=== PATIENT | female | born 1990 | race African-American/Black ===

== ENCOUNTER 2016-06-01 09:55 | Emergency (ER) | payer SELFPAY ==
[~2016-06-01] VITALS: Ht 165.1 cm; Wt 101.6 kg
[~2016-06-01 09:55] MED LIST: SULF15DR5 OD
[2016-06-01 10:25] VITALS: BP 148/90
[2016-06-01 11:31] LABS: BACTERIA,URINE FEW /HPF (0-FEW); BILIRUBIN,URINE NEGATIVE (NEG); GLUCOSE,URINE NEGATIVE (NEG); NITRITE,URINE NEGATIVE (NEG); PH,URINE 6.5; PROTEIN,URINE NEGATIVE (NEG-TRACE); RBC,URINE 0 /HPF (0-2); SQUAMOUS EPITHELIAL CELL,UR MOD /LPF; UROBILINOGEN,URINE 0.2 mg/dL (0.2 mg/dL)
--- NOTE | 2016-06-01 12:11 | RAD ---
INDICATION: right flank pain, worse with coughing COMPARISON: None. FINDINGS: 2 views of chest obtained No focal airspace consolidation. Mediastinal contour is mildly prominent No gross osseous destructive lesion. IMPRESSION: No focal airspace consolidation or edema.
[2016-06-01] MEDS ORDERED: TRAM-29 PO (12:30)
[2016-06-01] MEDS ORDERED: CEPH-264 PO (12:30)
--- NOTE | 2016-06-01 12:30 | PHYS DOC ---
Past Medical History Past Medical History: Hypertension Past Surgical History: No Surgical History Additional Information: nonsmoker Alcohol Use: Occasionally Drug Use: Marijuana Adult General Chief Complaint Chief Complaint: PAIN CONTROL HPI HPI Patient is a 25 year old female who presents with right flank pain starting 5 days ago. She denies any injury to the area. She states that the pain is worse with movement and coughing. She has had a mild cough and shortness of breath. She has urinary frequency without dysuria or hematuria. She denies fever, nausea , vomiting, or abdominal pain. Her LMP was 04/10/16. She usually has regular menstrual cycles. She is sexually active without use of condoms or control. She has not taken a home test. She has not taken any medication for the flank pain. She does not have a PCP. Review of Systems Review of Systems Constitutional: Denies fever or chills. [] Eyes: Denies change in visual acuity, redness, or eye pain. [] HENT: Denies ear pain, nasal congestion or sore throat. [] Respiratory: Reports mild cough and shortness of breath. Cardiovascular: Denies chest pain, palpitations or edema. [] GI: Denies abdominal pain, nausea, vomiting, bloody stools or diarrhea. [] : Denies dysuria, hematuria. Reports urinary frequency and right flank pain. Musculoskeletal: Denies back pain or joint pain. [] Integument: Denies rash or skin lesions. [] Neurologic: Denies headache, focal weakness or sensory changes. [] All systems reviewed and negative unless otherwise stated in the HPI. Allergies Allergies Allergies Coded Allergies Type Severity Reaction Last Updated Verified No Known Drug Allergies 05/13/13 No Physical Exam Physical Exam Constitutional: Well developed, well nourished, no acute distress, non-toxic appearance. [] HENT: Normocephalic, atraumatic, oropharynx moist. [] Eyes: PERRLA, EOMI, conjunctiva normal, no discharge. [] Neck: Normal range of motion, no tenderness, supple, no stridor. [] Cardiovascular: Heart rate regular rhythm, no murmur. [] Lungs & Thorax: Bilateral breath sounds clear to auscultation without wheezes, rales, or rhonchi. No chest wall tenderness. Abdomen: Bowel sounds normal, soft, no tenderness, no masses, no pulsatile masses. [] Skin: Warm, dry, no erythema, no rash. [] Back: No midline tenderness, no CVA tenderness. Right flank tenderness. Neurologic: Alert and oriented X 3, normal motor function, normal sensory function, no focal deficits noted. [] Psychologic: Affect normal, judgement normal, mood normal. [] Current Patient Data Vital Signs Vital Signs Date Time Temp Pulse Resp B/P Pulse Ox O2 Delivery O2 Flow Rate FiO2 06/01/16 10:25 98.1 68 18 148/90 98 Room Air 98.1 Lab Values Laboratory Tests Test 06/01/16 10:29 06/01/16 10:32 Urine Collection Type Unknown Urine Color Yellow Urine Clarity Hazy Urine pH 6.5 Urine Specific [place] 1.020 Urine Protein Negativemg/dL (NEG-TRACE) Urine Glucose (UA) Negativemg/dL (NEG) Urine Ketones (Stick) Negativemg/dL (NEG) Urine Blood Negative (NEG) Urine Nitrite Negative (NEG) Urine Bilirubin Negative (NEG) Urine Urobilinogen Dipstick 0.2mg/dL (0.2 mg/dL) Urine Leukocyte Esterase Large (NEG) Urine RBC 0/HPF (0-2) Urine WBC 11-20/HPF (0-4) Urine Squamous Epithelial Cells Mod/LPF Urine Bacteria Few/HPF (0-FEW) Urine Mucus Mod/LPF POC Urine HCG, Qualitative Hcg negative (Negative) EKG EKG [] Radiology/Procedures Radiology/Procedures REASON: right flank pain, worse with coughing PROCEDURE: CHEST PA & LATERAL INDICATION: right flank pain, worse with coughing COMPARISON: None. FINDINGS: 2 views of chest obtained No focal airspace consolidation. Mediastinal contour is mildly prominent No gross osseous destructive lesion. IMPRESSION: No focal airspace consolidation or edema. Course & Med Decision Making Course & Med Decision Making Pertinent Labs and Imaging studies reviewed. (See chart for details) Patient presents with 5 days of right flank pain with cough and urinary frequency. On exam, she does not have any chest wall, abdominal, no midline spinal, or paraspinal muscle tenderness. Her tenderness is only in the right flank region. Chest x-ray does not show any acute findings. Urine does show infection. She states that the pain is worse with movement or with taking a deep breath. She is PERC negative. She is discharged home with prescription for Keflex for UTI and tramadol for pain. Return precautions were discussed. She verbalizes understanding and agrees with plan. Dragon Disclaimer Nicholas Disclaimer This electronic medical record was generated, in whole or in part, using a voice recognition dictation system. Departure Departure Impression: Primary Impression: UTI (urinary tract infection) Additional Impression: Flank pain Disposition: 01 HOME, SELF-CARE Condition: STABLE Referrals: NO PCP (PCP) Patient Instructions: Flank Pain, [id number], Urinary Tract Infection, Easy- to-Read Additional Instructions: Your urine shows an infection. Your chest xray is normal. Please complete all the prescribed antibiotics, even if you are feeling better. Please take the prescribed pain medication as directed. Do not drive or operate heavy machinery while taking pain medication. Please follow-up with a primary care doctor after completing the antibiotics to be sure the infection has cleared. Return to emergency department with any new or concerning symptoms. Scripts Tramadol Hcl (Ultram)50 Mg Lzhilc32 Mg PO Q6H PRN PAIN #20 TAB Prov:CECILIA BUSTOS 06/01/16 Cephalexin (Keflex)500 Mg Capsule1 Cap PO BID #14 CAP Prov:CECILIA BUSTOS 06/01/16 Problem Qualifiers Primary Impression: UTI (urinary tract infection) Urinary tract infection type: acute cystitis Hematuria presence: without hematuria Qualified Code: N30.00 - Acute cystitis without hematuria CECILIA BUSTOS Jun 01, 2016 12:30
== END 2016-06-01 12:43 | disposition home or self-care (01) ==
LOC: ER 09:55
DX: N30.00 Acute cystitis without hematuria (principal); I10 Essential (primary) hypertension; R05 Cough; R06.02 Shortness of breath; F12.10 Cannabis abuse, uncomplicated
CPT/HCPCS: 71020; 81001; 81025; 87086; 99285-25

== ENCOUNTER 2019-02-18 17:53 | Emergency (ER) | payer SELFPAY ==
[~2019-02-18] VITALS: Ht 165.1 cm; Wt 108.9 kg
[~2019-02-18 17:53] MED LIST changes: +CEPH-264 PO; +TRAM-48 PO
[2019-02-18 18:05] VITALS: BP 148/90
--- NOTE | 2019-02-18 18:37 | PHYS DOC ---
Past Medical History Past Medical History: Hypertension (BAM MARTÍNEZ APRN) Past Surgical History: No Surgical History (BAM MARTÍNEZ APRN) Alcohol Use: Occasionally Drug Use: None (BAM MARTÍNEZ APRN) Attending Signature I have participated in the care of this patient and I have reviewed and agree with all pertinent clinical information above including history, exam, and recommendations. (RAD SCHROEDER MD) Adult General Chief Complaint Chief Complaint: SEXUALLY TRANSMITTED DISEASE HPI HPI Patient is a 28 year old [female] who presents with [reported chlamydia exposure. Patient reports her social partner did let her know today that he was diagnosed with a chlamydia infection at the health department. Reports she has intercourse with just this partner over the last several months, with this partner also having additional partners. Reports the partner had been treated as well as the other individual. Patient states she has had no couplets or concerns, has had no vaginal discharge, no vaginal bleeding, no abdominal pain. Also reports she has noticed a lesion on her left labia over the last day. States she has never had this before. States she does not use a condom when she has intercourse.] (BAM MARTÍNEZ APRN) Review of Systems Review of Systems Constitutional: Denies fever or chills [] GI: Denies abdominal pain, nausea, vomiting, bloody stools or diarrhea [] : Denies dysuria or hematuria [] Musculoskeletal: Denies back pain or joint pain [] Integument: Denies rash or skin lesions [] Neurologic: Denies headache, focal weakness or sensory changes [] Endocrine: Denies polyuria or polydipsia [] All other systems were reviewed and found to be within normal limits, except as documented in this note. (BAM MARTÍNEZ APRN) Current Medications Current Medications Current Medications Medications (Trade) Dose Ordered Sig/Nikolas Start Time Stop Time Status Last Admin Dose Admin Azithromycin (Zithromax) 1,000 mg 1X ONCE 02/18/19 18:45 02/18/19 18:46 DC 02/18/19 18:45 1,000 MG Ceftriaxone Sodium (Rocephin Im) 250 mg 1X ONCE 02/18/19 18:45 02/18/19 18:46 DC 02/18/19 18:44 250 MG (RAD SCHROEDER MD) Allergies Allergies Allergies Coded Allergies Type Severity Reaction Last Updated Verified No Known Drug Allergies 05/13/13 No (RAD SCHROEDER MD) Physical Exam Physical Exam Constitutional: Well developed, well nourished, no acute distress, non-toxic appearance. [] Cardiovascular:Heart rate regular rhythm, no murmur [] Lungs & Thorax: Bilateral breath sounds clear to auscultation [] Abdomen: Bowel sounds normal, soft, no tenderness, no masses, no pulsatile m asses. [] Skin: Warm, dry, no erythema, no rash. [] Neurologic: Alert and oriented X 3, normal motor function, normal sensory function, no focal deficits noted. [] Psychologic: Affect normal, judgement normal, mood normal. [] : Chaperoned by MARCELLA Rowland - noted ingrown hair to left upper labia, with minimal tenderness, no purulence. no pustule noted. (BAM MARTÍNEZ APRN) Current Patient Data Vital Signs Vital Signs Date Time Temp Pulse Resp B/P (MAP) Pulse Ox O2 Delivery O2 Flow Rate FiO2 02/18/19 18:05 98.2 83 16 148/90 (109) 98 Room Air 98.2 (RAD SCHROEDER MD) EKG EKG [] (BAM MARTÍNEZ APRN) Radiology/Procedures Radiology/Procedures [] (BAM MARTÍNEZ APRN) Course & Med Decision Making Course & Med Decision Making Pertinent Labs and Imaging studies reviewed. (See chart for details) [Discussed treatment of this GI with exposure. Discussed lesion with patient, noting it to appear to be ingrown hair. Discussed safer sexual practices. Patient with no further questions or concerns] (BAM MARTÍNEZ APRN) Dragon Disclaimer Dragon Disclaimer This electronic medical record was generated, in whole or in part, using a voice recognition dictation system. (BAM MARTÍNEZ APRN) Departure Departure Impression: Primary Impression: Sexually transmitted disease exposure Additional Impression: Ingrown hair Disposition: 01 HOME, SELF-CARE Condition: STABLE Referrals: NO PCP (PCP) Patient Instructions: Chlamydia, Females and Males, Rear-Facing Infant-Only Child Safety Seat Additional Instructions: As we discussed, make sure you are pressing safer sexual practices. With any partner make sure using condoms for the next 7 days after taking the antibiotics we have given here today. You can try using a warm compress over your ingrown hair, this may make it Less uncomfortable. Problem Qualifiers BAM MARTÍNEZ APRN Feb 18, 2019 18:37 RAD SCHROEDER MD Feb 18, 2019 23:17
[2019-02-18] MEDS ORDERED: cefTRIAXone IM 250 MG VIAL IM ONE (18:45)
[2019-02-18] MEDS ORDERED: AZITHROMYCIN 250 MG TABLET. PO ONE (18:45)
== END 2019-02-18 18:50 | disposition home or self-care (01) ==
LOC: ER 17:53
DX: Z20.2 Contact with and (suspected) exposure to infections with a predominantly sexual mode of transmission (principal); L73.1 Pseudofolliculitis barbae; I10 Essential (primary) hypertension
CPT/HCPCS: 96372; 99283; J0696; Q0144

== ENCOUNTER 2019-06-27 22:14 | Emergency (ER) | payer SELFPAY ==
[2019-06-27 22:30] VITALS: BP 148/109
== END 2019-06-27 23:35 | disposition left against medical advice (07) ==
LOC: ER 22:14
DX: R05 Cough (principal); R09.81 Nasal congestion; M79.10 Myalgia, unspecified site; R51 Headache; Z53.21 Procedure and treatment not carried out due to patient leaving prior to being seen by health care provider